=== PATIENT | female | born 1995 | race Caucasian/White ===

== ENCOUNTER 2020-11-17 07:00 | Emergency (ER) | payer BC ==
[~2020-11-17] VITALS: Ht 160 cm; Wt 54.4 kg
[2020-11-17] MEDS ORDERED: TETRACAINE HCL 0.5% OPTH SOLN 4 ML BTL OP ONE (07:15)
== END 2020-11-17 07:20 | disposition home or self-care (01) ==
LOC: ER 07:03
DX: H92.01 Otalgia, right ear (principal)
CPT/HCPCS: 99282